=== PATIENT | female | born 1995 | race Caucasian/White ===

== ENCOUNTER 2023-12-03 15:09 | Emergency (ER) | payer BC, SELFPAY ==
[2023-12-03 15:09] VITALS: BMI 21.0
[2023-12-03 15:20] VITALS: BP 113/78
[2023-12-03 15:50] LABS: % Basophils 0.8 % (0-2); % Eosinophils 0.4 % (0-6); % Immature Granulocytes 0.3 % (0-0.5); % Lymphocytes 19.7 % (20.5-51.1); % Monocytes 8.7 % (1.7-9.3); % Neutrophils 70.1 % (42.2-75.2); Absolute Basophils 0.1 10^3/uL (0-0.2); Absolute Eosinophils 0.1 10^3/uL (0-0.7); Absolute Lymphocytes 2.2 10^3/uL (1.2-3.4); Absolute Neutrophils 7.8 10^3/uL (1.4-6.5); Hematocrit 37.8 % (37.0-47.0); Hemoglobin 13.2 g/dL (12.0-16.0); Mean Corp Hgb Conc. 34.9 g/dL (33.0-37.0); Mean Corpuscular Hgb 32.4 pg (27.0-31.0); Mean Corpuscular Volume 92.9 fL (81.0-99.0); Mean Platelet Volume 10.3 fL (7.4-10.4); Nucleated Red Blood Cells % 0 %; Platelet Count 371 10^3/uL (130-400); Red Blood Cell Count 4.07 10^6/uL (4.20-5.40); Red Cell Dist. Width 12.5 % (11.5-14.5); White Blood Cell Count 11.2 10^3/uL (4.8-10.8)
[2023-12-03 16:00] LABS: HCG, Serum Qualitative Screen Negative
[2023-12-03 16:05] LABS: ALT (SGPT) 11 U/L (0-35); AST (SGOT) 24 U/L (14-36); Albumin 5.2 g/dl (3.5-5.0); Alkaline Phosphatase 68 U/L (38-126); Blood Urea Nitrogen 6 mg/dl (7-17); Calcium 10.1 mg/dl (8.4-10.2); Carbon Dioxide 26 mmol/L (22-30); Chloride 100 mmol/L (98-107); Glucose 101 mg/dl (70-99); Lipase 65 U/L (23-300); Sodium 136 mmol/L (135-145); Total Bilirubin 0.5 mg/dl (0.2-1.3); Total Protein 8.2 g/dl (6.3-8.2); eGFR > 60.00
[2023-12-03] MEDS: OMNIPAQUE 50 ML PO (17:36)
--- NOTE | 2023-12-03 17:38 | ED.GENMED ---
History of Present Illness
General
Chief Complaint: Abdominal Pain
Source: patient
Time Seen by Provider: 12/03/23 16:28
History of Present Illness
History of Present Illness:
28-year-old female presents with sudden onset lower abdominal pain starting earlier today. It was sharp doubling over all times. She notes a decreased appetite associated with this but denies vomiting or fever. No prior abdominal surgical
history. Last menstrual cycle was about 3 weeks ago. Pain does not radiate to the back. No associated urinary symptoms. She has been moving her bowels normally.
Phy Exam
Physical Exam
Physical Exam:
General: Well-appearing female no acute respiratory distress
HEENT: Normocephalic atraumatic neck supple
Heart: Regular rate and rhythm no murmurs
Lungs: Clear no wheeze or rale
Abdomen soft tender to the suprapubic and right lower abdomen
Extremities: No cyanosis or edema
Course
Orders/Labs/Results
Orders:
Orders
12/03/23 15:26
Test Result ONCE
12/03/23 15:38
Complete Blood Count/With Diff Urgent
Comprehensive Metabolic Panel Urgent
HCG, Serum Qualitative Screen Urgent
Lipase Urgent
12/03/23 17:06
Iohexol [Omnipaque] See Protocol PO NOW STA
US Pelvis Only (non-obstetric) Urgent
Reason For Exam: lower abdominal pain
Abnormal Lab Results
12/03/23
15:38
WBC 11.2 H 10^3/uL
(4.8-10.8)
RBC 4.07 L 10^6/uL
(4.20-5.40)
MCH 32.4 H pg
(27.0-31.0)
Absolute Neuts (auto) 7.8 H 10^3/uL
(1.4-6.5)
Absolute Monos (auto) 1.0 H 10^3/uL
(0.1-0.6)
Lymphocytes % 19.7 L %
(20.5-51.1)
BUN 6 L mg/dl
(7-17)
Glucose 101 H mg/dl
(70-99)
Albumin 5.2 H g/dl
(3.5-5.0)
12/03/23 15:38
12/03/23 15:38
Vital Signs
Initial and Last Documented VS:
Initial Vital Signs
Temp Pulse Resp BP Pulse Ox
98.0 F 84 20 113/78 99
12/03/23 15:20 12/03/23 15:20 12/03/23 15:20 12/03/23 15:20 12/03/23 15:20
Last Documented Vital Signs
Temp Pulse Resp BP Pulse Ox
98.0 F 84 20 113/78 99
12/03/23 15:20 12/03/23 15:20 12/03/23 15:20 12/03/23 15:20 12/03/23 15:20
MDM/Problems Addressed
Differential Diagnosis Includes:
Lower abdominal pain. Consider ovarian torsion versus ruptured cyst versus appendicitis versus constipation
Will check labs. Ultrasound pelvis pending. If negative consider CT.
*Critical Care Note
Total Time (30-74mins, 75-104mins- exclusive of procedures): Not Applicable
Update Note
Update Note:
Ultrasound demonstrates evidence of a ruptured cyst. This actually happened during the exam. Initially measured 4.3 cm and during the exam it decreased to 2 cm with surrounding fluid. Patient reexamined still appears comfortable. There is no
evidence of torsion on ultrasound. Initially considered CT to evaluate for appendicitis however history not consistent with this and the ruptured ovarian cyst explains her discomfort. Recommended ibuprofen for pain. She stable for discharge
ED Attending Note
-
Portions of this chart may have been created with voice recognition software.� Occasional wrong word or��sound alike� substitutions may have occurred due to the inherent limitations of voice recognition software.
Discharge Plan
Departure
Patient Disposition: Home (Routine Discharge)
Date of Disposition: 12/03/23
Time of Disposition: 20:31
Patient with high blood pressure during this ER visit?: No
Discharge Problem:
Ovarian cyst
Instructions: Ovarian Cyst (DC)
Referrals:
PRIVATE,PHYSICIAN [Family Provider] -
Activity Restrictions/Additional Instructions:
You may use ibuprofen for pain. 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
Interventions
Interventions:
*Risk Screen - Suicide Last Done: 12/03/23 15:20
*General Assessment Last Done: 12/03/23 15:20
*Neglect/Abuse Screening Last Done: 12/03/23 15:20
ED- Fall Risk Assessment Last Done: 12/03/23 17:56
LA-Aqmity-Yfyzkfjpdv Assessment Last Done: 12/03/23 17:56
Discharge Date and Time
Print Language: NORWEGI[place]
[2023-12-03 20:42] VITALS: BP 120/62
== END 2023-12-03 20:42 | disposition home or self-care (01) ==
LOC: EMR 15:09
PROVIDERS: Emergency Medicine; EMERGENCY PHYSICIAN Emergency Medicine
DX: N83.201 Unspecified ovarian cyst, right side (principal)
CPT/HCPCS: 99284; 76856; 80053; 83690; 84703; 85025